=== PATIENT | male | born 1965 | race Caucasian/White ===

== ENCOUNTER 2018-05-07 20:15 | Emergency (ER) | payer OTHER ==
[2018-05-07 20:40] VITALS: BP 170/98
[2018-05-07] MEDS ORDERED: Ketorolac INJ* 30 MG/ML 1 ML VIAL IM ONE (20:52)
--- NOTE | 2018-05-07 20:52 | UC ---
Back Pain HPI - HPI Summary HPI Summary: The patient is a 53-year-old male who presents here with back pain. Walking his dog on a leash. His dog ran down a sary pulling him in. He states he slid down the marilu which is approximately 20 feet deep. He had a difficult time getting out of the marilu. He has no bowel or bladder dysfunction. He denies any known pain radiating down his legs. He has had a history of back pain in the past due to degenerative disc disease. The injury occurred about 3 PM. He has not taken anything for the pain. - History of Current Complaint Chief Complaint: UCBackPain Stated Complaint: FALL,BACK INJURY Time Seen by Provider: 05/07/18 20:21 Hx Obtained From: Patient Onset/Duration: Sudden Onset, Lasting Hours Timing: Constant Severity Initially: Moderate Severity Currently: Moderate Pain Intensity: 7 Pain Scale Used: 0-10 Numeric Character: Dull, Aching, Throbbing Aggravating Factor(s): Movement Alleviating Factor(s): Rest Associated Signs And Symptoms: Positive: Negative Full Body (No Head): 1 - tender - Allergies/Home Medications Allergies/Adverse Reactions: Allergies Allergy/AdvReac Type Severity Reaction Status Date / Time No Known Allergies Allergy Verified 05/07/18 20:33 PMH/Surg Hx/FS Hx/Imm Hx Previously Healthy: Yes - Surgical History Surgical History: Yes Surgery Procedure, Year, and Place: Left Knee Arthroscopy, ?, [facility] - Family History Known Family History: Positive: Hypertension - Social History Alcohol Use: None Substance Use Type: None Smoking Status (MU): Heavy Every Day Tobacco Smoker Type: Cigarettes Amount Used/How Often: 1/2 PPD Length of Time of Smoking/Using Tobacco: 30 Years Have You Smoked in the Last Year: Yes Review of Systems Constitutional: Negative Skin: Negative Eyes: Negative ENT: Negative Respiratory: Negative Cardiovascular: Negative Gastrointestinal: Negative Genitourinary: Negative Motor: Negative Neurovascular: Negative Musculoskeletal: Arthralgia, Myalgia Neurological: Negative Psychological: Negative Is Patient Immunocompromised?: No All Other Systems Reviewed And Are Negative: Yes Physical Exam Triage Information Reviewed: Yes Appearance: Well-Appearing, No Pain Distress, Well-Nourished Vital Signs: Initial Vital Signs Temp 98.1 F 05/07/18 20:34 Pulse 92 05/07/18 20:34 Resp 14 05/07/18 20:34 BP 170/98 05/07/18 20:34 Pulse Ox 99 05/07/18 20:34 Vital Signs Reviewed: Yes Eyes: Positive: Conjunctiva Clear ENT: Positive: Hearing grossly normal. Negative: Nasal congestion, Nasal drainage, Trismus, Muffled voice, Hoarse voice, Sinus tenderness, Uvula midline Neck: Positive: Supple, Nontender Respiratory: Positive: Lungs clear, Normal breath sounds, No respiratory distress, No accessory muscle use Cardiovascular: Positive: RRR, No Murmur, Pulses Normal Abdomen Description: Positive: Nontender, No Organomegaly. Negative: Bruit, CVA Tenderness (R), CVA Tenderness (L) Bowel Sounds: Positive: Present Neurological: Positive: Alert Psychological Exam: Normal Skin Exam: Normal Diagnostics - Radiology No standard instances Xray Interpretation: No Acute Changes - NO acute fractures noted by me Radiology Interpretation Completed By: ED Physician Back Pain Course/Dx - Differential Dx/Diagnosis Provider Diagnoses: upper and lower back strain Discharge - Sign-Out/Discharge Documenting (check all that apply): Patient Departure - Discharge Plan Condition: Stable Disposition: HOME Patient Education Materials: Low Back Strain (ED), Thoracic Back Strain (ED) Additional Instructions: I saw no fracture offical reading pending call tomorrow for official report ibruprofen 200mf 3-4 pills 4x day with food for pain you have been dispense 4 hydrocodone use sparing for severe pain SEE YOUR PROVIDER IN 3-7 DAYS FOR RECHECK - Billing Disposition and Condition Condition: STABLE Disposition: Home
[2018-05-07] MEDS ORDERED: HYDROcodone/ACETAMIN 5-325 MG* 1 TAB PO ONE (21:56)
--- NOTE | 2018-05-08 07:19 | RAD ---
INDICATION: Trauma, back pain. COMPARISON: Comparison is made with a prior x-ray study of the lumbar spine from October 27, 2008. TECHNIQUE: AP and lateral upright views of the lumbar spine were obtained. FINDINGS: The vertebra are in normal alignment. No fracture is seen. There is a prominent Schmorl's node in the superior endplate of the L2 vertebral body which is unchanged. There is mild to moderate diffuse degenerative disc disease throughout the lumbar spine. IMPRESSION: 1. NO EVIDENCE FOR FRACTURE. 2. MILD TO MODERATE DIFFUSE DEGENERATIVE DISC DISEASE. R0
--- NOTE | 2018-05-08 07:23 | RAD ---
INDICATION: Injury, back pain. COMPARISON: Comparison is made with a prior chest x-ray study from June 18, 2011. TECHNIQUE: AP and lateral films of the spine were obtained centered at the dorsal lumbar junction. FINDINGS: There is a mild dorsal lumbar scoliosis convex toward the left side. The vertebra are otherwise in normal alignment. No acute fracture is seen. There is mild to moderate diffuse degenerative disc disease throughout the visualized dorsal and lumbar spine. IMPRESSION: 1. NO EVIDENCE FOR FRACTURE. 2. MILD TO MODERATE DIFFUSE DEGENERATIVE DISC DISEASE. R0
== END 2018-05-07 22:10 | disposition home or self-care (01) ==
LOC: UCCORT 20:15
DX: S39.012A Strain of muscle, fascia and tendon of lower back, initial encounter (principal); S29.012A Strain of muscle and tendon of back wall of thorax, initial encounter; W10.2XXA Fall (on)(from) incline, initial encounter; Y93.K1 Activity, walking an animal; Y92.89 Other specified places as the place of occurrence of the external cause; F17.210 Nicotine dependence, cigarettes, uncomplicated
CPT/HCPCS: 72080; 72100; 96372; 99202; G0463; J1885